=== PATIENT | female | born 1995 | race Caucasian/White ===

== ENCOUNTER 2019-01-10 16:08 | Emergency (ER) | payer MEDICAID ==
[~2019-01-10] VITALS: Ht 170.2 cm; Wt 86.2 kg
[2019-01-10 16:11] VITALS: Ht 170.2 cm; Wt 86.2 kg
[2019-01-10 17:20] VITALS: BP 156/100
== END 2019-01-10 17:20 | disposition home or self-care (01) ==
LOC: ED 16:08
DX: S60.511A Abrasion of right hand, initial encounter (principal); W54.0XXA Bitten by dog, initial encounter; Y93.89 Activity, other specified; Y92.89 Other specified places as the place of occurrence of the external cause; Y99.8 Other external cause status; F32.9 Major depressive disorder, single episode, unspecified
CPT/HCPCS: 90715

== ENCOUNTER 2019-03-13 12:17 | Emergency (ER) | payer MEDICAID ==
[~2019-03-13] VITALS: Ht 170.2 cm; Wt 95.3 kg
[2019-03-13 13:08] VITALS: Ht 170.2 cm; Wt 95.3 kg
[2019-03-13 14:54] VITALS: BP 150/77
== END 2019-03-13 14:54 | disposition home or self-care (01) ==
LOC: ED 12:17
DX: S51.811A Laceration without foreign body of right forearm, initial encounter (principal); J45.909 Unspecified asthma, uncomplicated; Z88.0 Allergy status to penicillin; W54.0XXA Bitten by dog, initial encounter; Y93.89 Activity, other specified; Y92.89 Other specified places as the place of occurrence of the external cause; Y99.8 Other external cause status